=== PATIENT | female | born 1970 | race Caucasian/White ===

== ENCOUNTER 2018-01-12 05:19 | Inpatient (IN) | payer MEDICAID, OTHER ==
[~2018-01-12] VITALS: Ht 167.6 cm; Wt 63.0 kg
[~2018-01-12 05:19] MED LIST: OLAN5TAB2 PO
[2018-01-12] MEDS ORDERED: BUSP15 PO (06:53)
[2018-01-12 07:36] LABS: BASOPHILS % (AUTO) 1.3 % (0.0-2.0); EOSINOPHILS % (AUTO) 0.7 % (1.0-6.0); HEMATOCRIT 34.9 % (36-46); HEMOGLOBIN 11.8 g/dL (12.0-16.0); MEAN CORPUSCULAR HEMOGLOBIN 28.7 pg (26.0-34.0); MEAN CORPUSCULAR HGB CONC 33.8 G/dL (31.0-37.0); MEAN CORPUSCULAR VOLUME 85 fL (80-100); MONOCYTES # (AUTO) 1.1 K/uL (0.1-1.0); MONOCYTES % (AUTO) 9.6 % (2.0-9.0); NEUTROPHILS # (AUTO) 8.3 K/uL (1.8-7.7); NEUTROPHILS % (AUTO) 71.4 % (40.0-70.0); PLATELET COUNT (AUTO) 398 K/uL (150-450); RED BLOOD CELL COUNT(AUTO) 4.11 MIL/uL (4.00-5.20); RED CELL DISTRIBUTION WIDTH 15.7 % (11.5-14.5)
[2018-01-12 07:42] LABS: ANION GAP 10 mmol/L (8-16); CALCIUM, TOTAL 8.7 mg/dL (8.8-10.5); CARBON DIOXIDE 26 mmol/L (22-29); CHLORIDE 100 mmol/L (98-107); CREATININE 0.94 mg/dL (0.60-1.30); GLOMERULAR FILTR. RATE CALC > 60 mL/min (>60); GLUCOSE,RANDOM 103 mg/dL (70-110); POTASSIUM 3.2 mmol/L (3.5-5.1); SODIUM SERUM 136 mmol/L (136-145); UREA NITROGEN, BLOOD 16 mg/dL (7-18)
[2018-01-12 07:48] LABS: ALANINE AMINOTRANSFERASE 36 U/L (12-78); ALBUMIN 4.3 g/dL (3.4-5.0); ALKALINE PHOSPHATASE 82 U/L (46-116); ASPARTATE AMINOTRANSFERASE 34 U/L (15-37); BILIRUBIN,TOTAL 0.9 mg/dL (0.1-1.0); TOTAL PROTEIN, SERUM 8.2 g/dL (6.4-8.2)
[2018-01-12] MEDS ORDERED: OLAN10TA3 PO (08:07)
[2018-01-12 08:15] LABS: AMPHET/METH SCREEN,URINE POSITIVE (NEGATIVE); BARBITURATE SCREEN, URINE NEGATIVE (NEGATIVE); BENZODIAZEPINES SCREEN,URINE NEGATIVE (NEGATIVE); CANNABINOID SCREEN,URINE NEGATIVE (NEGATIVE); COCAINE SCREEN,URINE NEGATIVE (NEGATIVE); METHADONE SCREEN, URINE NEGATIVE (NEGATIVE); OPIATE SCREEN,URINE NEGATIVE (NEGATIVE)
[2018-01-12] MEDS ORDERED: LORazepam 2 MG TABLET PO ONE (08:15)
[2018-01-12] MEDS ORDERED: HALOPERIDOL 5 MG TABLET PO ONE (08:15)
[2018-01-12 08:31] LABS: PHENCYCLIDINE SCREEN,URINE NEGATIVE (NEGATIVE)
[2018-01-12] MEDS ORDERED: DiphenhydrAMINE HCL 25 MG CAPSULE PO ONE (09:00)
[2018-01-12] MEDS ORDERED: POTASSIUM CHLORIDE 20 MEQ ER TABLET PO ONE (09:45)
[2018-01-12] MEDS ORDERED: ZOLPIDEM TARTRATE 10 MG TABLET PO PRN (10:15)
[2018-01-12] MEDS ORDERED: HALOPERIDOL 5 MG TABLET PO PRN (10:15)
[2018-01-12] MEDS: BusPIRone HCL 15 MG TABLET PO SCH (17:20)
[2018-01-12] MEDS: LORazepam 2 MG TABLET PO PRN (17:20)
[2018-01-12] MEDS ORDERED: MAGNESIUM HYDROXIDE SUSPENSION 30 ML UDCUP PO PRN (19:00)
[2018-01-12] MEDS ORDERED: ONDANSETRON HCL 4 MG TABLET PO PRN (19:00)
[2018-01-12] MEDS ORDERED: ALBUTEROL SULFATE HFA 90 MCG/PUFF 8 GM INHALER IH PRN (19:00)
[2018-01-12] MEDS ORDERED: BENZOCAINE/MENTHOL LOZENGE MM PRN (19:00)
[2018-01-12] MEDS ORDERED: CloNIDine HCL 0.1 MG TABLET PO PRN (19:00)
[2018-01-12] MEDS ORDERED: DOCUSATE SODIUM 100 MG CAPSULE PO PRN (19:00)
[2018-01-12] MEDS ORDERED: LOPERAMIDE HCL 2 MG CAPSULE PO PRN (19:00)
[2018-01-12] MEDS ORDERED: BACITRACIN 28.4 GM OINTMENT TP PRN (19:00)
[2018-01-12] MEDS ORDERED: MAG HYDROX/AL HYDROX/SIMETH ES 30 ML SUSPENSION UDCUP PO PRN (19:00)
[2018-01-12] MEDS ORDERED: ACETAMINOPHEN 325 MG TABLET PO PRN (19:00)
[2018-01-12] MEDS ORDERED: IBUPROFEN 600 MG TABLET PO PRN (19:00)
[2018-01-12] MEDS ORDERED: OMEPRAZOLE 20 MG CAPSULE PO PRN (19:00)
[2018-01-12] MEDS ORDERED: PETROLATUM,WHITE 71 GM JELLY TP PRN (19:00)
[2018-01-13] MEDS: OLANZapine 5 MG TABLET PO SCH (09:44)
[2018-01-13] MEDS: BusPIRone HCL 15 MG TABLET PO SCH ×2 (09:44→16:37)
[2018-01-14 08:20] VITALS: BP 100/69
[2018-01-14 08:34] LABS: HEMATOCRIT 34.2 % (36-46); HEMOGLOBIN 11.5 g/dL (12.0-16.0); MEAN CORPUSCULAR HEMOGLOBIN 28.9 pg (26.0-34.0); MEAN CORPUSCULAR HGB CONC 33.6 G/dL (31.0-37.0); MEAN CORPUSCULAR VOLUME 86 fL (80-100); PLATELET COUNT (AUTO) 337 K/uL (150-450); RED BLOOD CELL COUNT(AUTO) 3.98 MIL/uL (4.00-5.20); RED CELL DISTRIBUTION WIDTH 15.7 % (11.5-14.5)
[2018-01-14] MEDS: BusPIRone HCL 15 MG TABLET PO SCH ×2 (09:12→16:37)
[2018-01-14] MEDS: OLANZapine 5 MG TABLET PO SCH (09:12)
[2018-01-14] MEDS: NICOTINE 21 MG/24 HOUR PATCH TD SCH (09:12)
[2018-01-14 09:26] LABS: ANION GAP 7 mmol/L (8-16); CALCIUM, TOTAL 8.1 mg/dL (8.8-10.5); CARBON DIOXIDE 26 mmol/L (22-29); CHLORIDE 104 mmol/L (98-107); GLOMERULAR FILTR. RATE CALC > 60 mL/min (>60); GLUCOSE,RANDOM 97 mg/dL (70-110); PHOSPHORUS 3.4 mg/dL (2.5-4.9); POTASSIUM 3.8 mmol/L (3.5-5.1); SODIUM SERUM 137 mmol/L (136-145); UREA NITROGEN, BLOOD 13 mg/dL (7-18)
[2018-01-14 09:27] LABS: % IRON SATURATION 13.2 % (22-44); IRON, SERUM 51 mcg/dL (50-175); TOTAL IRON BINDING CAPACITY 384 mcg/dL (250-450)
[2018-01-14 09:34] LABS: BAND NEUTROPHILS % (MANUAL) 1 % (0-5); EOSINOPHILS % (MANUAL) 1 % (1-6); LYMPHOCYTES % (MANUAL) 40 % (22-44); MONOCYTES % (MANUAL) 4 % (2-9); SEGMENTED NEUTROPHILS % 54 % (40-70)
[2018-01-14 16:00] VITALS: BP 103/76
[2018-01-15 06:13] VITALS: BP 112/72
[2018-01-15] MEDS: OLANZapine 5 MG TABLET PO SCH (08:12)
[2018-01-15] MEDS: BusPIRone HCL 15 MG TABLET PO SCH ×2 (08:12→16:19)
[2018-01-15] MEDS: NICOTINE 21 MG/24 HOUR PATCH TD SCH (08:14)
[2018-01-15 08:36] VITALS: BP 115/70
[2018-01-15 16:00] VITALS: BP 113/75
[2018-01-15] MEDS: LORazepam 2 MG TABLET PO PRN (17:07)
[2018-01-16 06:20] VITALS: BP 111/75
[2018-01-16 08:09] VITALS: BP 116/68
[2018-01-16] MEDS: OLANZapine 5 MG TABLET PO SCH (08:32)
[2018-01-16] MEDS: NICOTINE 21 MG/24 HOUR PATCH TD SCH (08:32)
[2018-01-16] MEDS: BusPIRone HCL 15 MG TABLET PO SCH (08:32)
== END 2018-01-16 14:14 | disposition home or self-care (01) | DRG 753 ==
LOC: EMS 05:19 → B2S 12:52 → B3A 15:19
PROVIDERS: ADMIT Psychiatry & Neurology Psychiatry; ATTEND Psychiatry & Neurology Psychiatry
DX: F31.2 Bipolar disorder, current episode manic severe with psychotic features (principal); E83.51 Hypocalcemia; D64.9 Anemia, unspecified; F31.9 Bipolar disorder, unspecified; F41.9 Anxiety disorder, unspecified; J45.909 Unspecified asthma, uncomplicated; D72.829 Elevated white blood cell count, unspecified; E87.6 Hypokalemia; F15.20 Other stimulant dependence, uncomplicated; F12.90 Cannabis use, unspecified, uncomplicated; F16.90 Hallucinogen use, unspecified, uncomplicated; F17.200 Nicotine dependence, unspecified, uncomplicated; Z59.0 Homelessness; Z65.3 Problems related to other legal circumstances; Z79.899 Other long term (current) drug therapy; Z56.0 Unemployment, unspecified
CPT/HCPCS: 83540; 83550; 83735; 84100; 84132; 85007; G0480